=== PATIENT | male | born 2000 | race Caucasian/White ===

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

== ENCOUNTER → 2024-01-25 | Outpatient (CLI) | payer OTHER ==
[2024-01-27 12:19] LABS: HEPATITIS B SURFACE ANTIBODY 5.71 IU/L
[2024-01-27 13:41] LABS: HIV 1,2 COMBO ANTIGEN/ANTIBODY Negative (Negative)
[2024-01-27 13:57] LABS: HEPATITIS B SURFACE ANTIGEN Negative (Negative)
[2024-01-29 08:47] LABS: HCV QNT BY NAAT (IU/ML) Not Detected; HCV QNT BY NAAT (LOG IU/ML) Not Detected; HCV QNT BY NAAT INTERP Not Detected (Not Detected)
== END | disposition home or self-care (01) ==
LOC: LAB 12:36 → LAB SHORT 12:36
PROVIDERS: Chiropractor
DX: Z20.9 Contact with and (suspected) exposure to unspecified communicable disease (principal)
CPT/HCPCS: 84460; 87340; 87389; 87522

== ENCOUNTER → 2024-03-25 | Outpatient (CLI) | payer OTHER ==
[2024-03-27 18:39] LABS: HIV 1,2 COMBO ANTIGEN/ANTIBODY Negative (Negative)
[2024-03-28 13:49] LABS: HCV QNT BY NAAT (IU/ML) Not Detected; HCV QNT BY NAAT (LOG IU/ML) Not Detected; HCV QNT BY NAAT INTERP Not Detected (Not Detected)
== END | disposition home or self-care (01) ==
LOC: LAB SHORT 07:57 → LAB 07:57
PROVIDERS: Physician Assistant
DX: Z20.9 Contact with and (suspected) exposure to unspecified communicable disease (principal)
CPT/HCPCS: 87389; 87522